=== PATIENT | male | born 1930 | race Caucasian/White ===

== ENCOUNTER 2016-07-18 09:50 | Emergency (ER) | payer MEDICARE, BC ==
[~2016-07-18 09:50] MED LIST: BAYER CHEWABLE81 M2 PO; CELEXA40 MG PO; COLACE100 M1 PO; FLEXERIL10 MG PO; K-DUR20 ME1 PO; LASIX20 MG PO; TORADOL10 MG PO; TRAZODONE HCL100 M1 PO; ULTRAM50 MG PO; VALIUM5 MG PO; WELLBUTRIN XL300 MG PO; XANAX0.25 M1 PO
[2016-07-18] MEDS ORDERED: LAMICTAL25 M2 PO (09:59)
[2016-07-18] MEDS ORDERED: PATADAY2.5 M1 LEFT EYE (09:59)
[2016-07-18] MEDS ORDERED: ZOLOFT100 M1 PO (09:59)
[2016-07-18] MEDS ORDERED: AMBIEN5 M1 PO (10:12)
[2016-07-18 10:29] LABS: BASO % 0.4 % (0-2); EOS % 1.8 % (0-7); EOSINOPHIL ABSOLUTE COUNT 0.1 tho/cmm (0.0-0.7); HGB-HEMOGLOBIN 15.6 gm/dl (13.5-17.0); IMMATURE GRANULOCYTES ABSOLUTE 0.01 tho/cmm (0-0.03); IMMATURE GRANULOCYTES PERCENT 0.1 % (0-0.3); LYMPH % 23.5 % (20-45); LYMPH ABSOLUTE COUNT 1.7 tho/cmm (0.8-4.5); MCH (MEAN CORPUSCULAR HGB) 30.4 pg (28.0-32.0); MCHC MEAN CORPUSCULAR HGB CONC 33.9 % (32.0-36.0); MCV (MEAN CELL VOLUME) 89.5 fl (82.0-96.0); MEAN PLATELET VOLUME 10.3 cmc (9.4-12.4); MONO % 9.2 % (0-12); MONOCYTE ABSOLUTE COUNT 0.7 tho/cmm (0.0-1.2); NEUTROPHIL ABSOLUTE COUNT 4.8 tho/cmm (1.6-8.0); NEUTROPHIL-AUTOMATED 4.8 tho/cmm (1.6-8.0); PLATELET COUNT 149 tho/cmm (150-450); RED BLOOD COUNT 5.14 mil/cmm (4.40-5.70); RED CELL DISTRIBUTION WIDTH 13.3 % (12.4-16.4); WHITE BLOOD COUNT 7.4 tho/cmm (4.0-10.0)
[2016-07-18 10:39] LABS: PROTHROMBIN TIME 11.7 SECONDS (9.0-13.6)
[2016-07-18 10:45] LABS: ANION GAP 10 mmol/L (0-20); BLOOD UREA NITROGEN 12 mg/dl (6-24); CALCIUM 8.6 mg/dl (8.5-10.5); CARBON DIOXIDE-VENOUS 31 mmol/L (22-32); CHLORIDE 105 mmol/l (96-110); CREATININE 0.93 mg/dl (0.60-1.30); GLUCOSE 104 mg/dL (70-110); SODIUM 142 mmol/L (135-145); eGFR VALUE FOR BLACK 86 mL/Min
[2016-07-18 11:37] LABS: URINE BILIRUBIN NEGATIVE (NEG); URINE BLOOD NEGATIVE (NEG); URINE GLUCOSE (UA) NEGATIVE (NEG); URINE KETONE NEGATIVE (NEG); URINE LEUKOCYTE ESTERASE NEGATIVE (NEG); URINE NITRITE NEGATIVE (NEG); URINE PROTEIN NEGATIVE (NEG); URINE SPECIFIC GRAVITY 1.015 (1.003-1.030)
[2016-07-18 11:38] LABS: URINE APPEARANCE HAZY; URINE COLOR YELLOW
[2016-11-15] MEDS ORDERED: NYSTATIN15 G4 TP (10:30)
[2016-11-15] MEDS ORDERED: NYSTATIN15 G4 TOP (10:30)
[2016-11-15] MEDS ORDERED: OXYCODONE20 MG/1 M3 SL ×2 (10:32→10:33)
[2016-11-15] MEDS ORDERED: ATIVAN2 MG/1 ML SL (10:34)
[2016-11-15] MEDS ORDERED: LORAZEPAM2 MG/1 M4 SL (10:35)
[2016-11-15] MEDS ORDERED: TYLENOL325 M2 PR (10:37)
[2016-11-15] MEDS ORDERED: DULCOLAX10 MG PR (10:39)
[2016-11-15] MEDS ORDERED: BISCOLAX10 MG PR (10:40)
== END 2016-07-18 13:00 ==
LOC: EDMED 09:50
PROVIDERS: Emergency Medicine
DX: R53.1 Weakness (principal); R11.0 Nausea; Z86.718 Personal history of other venous thrombosis and embolism; Z86.73 Personal history of transient ischemic attack (TIA), and cerebral infarction without residual deficits
CPT/HCPCS: J2405; J7030

== ENCOUNTER 2016-08-15 18:08 | Inpatient (IN) | payer MEDICARE ==
[~2016-08-15 18:08] MED LIST changes: +AMBIEN5 M1 PO; +LAMICTAL25 M2 PO; +PATADAY2.5 M1 LEFT EYE; +ZOLOFT100 M1 PO
[2016-08-15] MEDS ORDERED: ULTRAM50 M1 PO (20:33)
[2016-08-15 22:49] LABS: BASO % 0.3 % (0-2); EOS % 1.8 % (0-7); EOSINOPHIL ABSOLUTE COUNT 0.2 tho/cmm (0.0-0.7); HGB-HEMOGLOBIN 14.4 gm/dl (13.5-17.0); IMMATURE GRANULOCYTES ABSOLUTE 0.03 tho/cmm (0-0.03); IMMATURE GRANULOCYTES PERCENT 0.3 % (0-0.3); LYMPH % 14.8 % (20-45); LYMPH ABSOLUTE COUNT 1.3 tho/cmm (0.8-4.5); MCH (MEAN CORPUSCULAR HGB) 30.7 pg (28.0-32.0); MCHC MEAN CORPUSCULAR HGB CONC 33.5 % (32.0-36.0); MCV (MEAN CELL VOLUME) 91.7 fl (82.0-96.0); MEAN PLATELET VOLUME 10.4 cmc (9.4-12.4); MONO % 8.6 % (0-12); MONOCYTE ABSOLUTE COUNT 0.8 tho/cmm (0.0-1.2); NEUTROPHIL ABSOLUTE COUNT 6.5 tho/cmm (1.6-8.0); NEUTROPHIL-AUTOMATED 6.5 tho/cmm (1.6-8.0); NEUTROPHILS % 74.2 % (40-80); PLATELET COUNT 121 tho/cmm (150-450); RED BLOOD COUNT 4.69 mil/cmm (4.40-5.70); WHITE BLOOD COUNT 8.8 tho/cmm (4.0-10.0)
[2016-08-15 23:05] LABS: ANION GAP 10 mmol/L (0-20); BLOOD UREA NITROGEN 16 mg/dl (6-24); CALCIUM 8.2 mg/dl (8.5-10.5); CARBON DIOXIDE-VENOUS 30 mmol/L (22-32); CHLORIDE 103 mmol/l (96-110); CREATININE 0.89 mg/dl (0.60-1.30); GLUCOSE 89 mg/dL (70-110); POTASSIUM 4.3 mmol/L (3.7-5.1); SODIUM 139 mmol/L (135-145); eGFR VALUE FOR BLACK >90 mL/Min
[2016-08-15 23:18] LABS: ESR-ERYTHROCYTE SED RATE 3 mm/hr (0-20)
[2016-08-16 18:46] LABS: URINE BILIRUBIN NEGATIVE (NEG); URINE BLOOD LARGE (NEG); URINE GLUCOSE (UA) NEGATIVE (NEG); URINE KETONE NEGATIVE (NEG); URINE LEUKOCYTE ESTERASE NEGATIVE (NEG); URINE NITRITE NEGATIVE (NEG); URINE PROTEIN NEGATIVE (NEG); URINE SPECIFIC GRAVITY 1.025 (1.003-1.030)
[2016-08-16 18:47] LABS: URINE APPEARANCE CLEAR; URINE COLOR DARK YELLOW
[2016-08-16 18:51] LABS: URINE EPITHELIAL CELLS 0 /[HPF] (0-10); URINE MUCUS 1+; URINE RBC 0-3 /[HPF] (0-5); URINE WBC 0 /[HPF] (0-5)
[2016-11-15] MEDS ORDERED: NYSTATIN15 G4 TP (10:30)
[2016-11-15] MEDS ORDERED: NYSTATIN15 G4 TOP (10:30)
[2016-11-15] MEDS ORDERED: OXYCODONE20 MG/1 M3 SL ×2 (10:32→10:33)
[2016-11-15] MEDS ORDERED: ATIVAN2 MG/1 ML SL (10:34)
[2016-11-15] MEDS ORDERED: LORAZEPAM2 MG/1 M4 SL (10:35)
[2016-11-15] MEDS ORDERED: TYLENOL325 M2 PR (10:37)
[2016-11-15] MEDS ORDERED: DULCOLAX10 MG PR (10:39)
[2016-11-15] MEDS ORDERED: BISCOLAX10 MG PR (10:40)
== END 2016-08-20 10:15 | DRG 74 ==
LOC: EDMED 18:08 → EMR2 22:43 → CAR1 22:58 → 5EB 08-16 21:50
PROVIDERS: Internal Medicine; ADMIT Family Medicine
PROC: 3E0S3BZ Introduction of Anesthetic Agent into Epidural Space, Percutaneous Approach (ICD-10-PCS; principal; 2016-08-16)
PROC: 3E0S33Z Introduction of Anti-inflammatory into Epidural Space, Percutaneous Approach (ICD-10-PCS; 2016-08-16)
DX: M54.10 Radiculopathy, site unspecified (principal); F03.90 Unspecified dementia, unspecified severity, without behavioral disturbance, psychotic disturbance, mood disturbance, and anxiety; F32.9 Major depressive disorder, single episode, unspecified; Z86.718 Personal history of other venous thrombosis and embolism; Z86.711 Personal history of pulmonary embolism; Z86.73 Personal history of transient ischemic attack (TIA), and cerebral infarction without residual deficits; Z98.1 Arthrodesis status; Z91.5 Personal history of self-harm; Z79.82 Long term (current) use of aspirin; F41.9 Anxiety disorder, unspecified; M48.07 Spinal stenosis, lumbosacral region; Z91.81 History of falling; M54.31 Sciatica, right side; G25.0 Essential tremor; M89.8X8 Other specified disorders of bone, other site
CPT/HCPCS: G0378; G8978-GP-CJ; G8979-GP-CK; G8987-GO-CK; G8988-GO-CJ; G8989-GO-CK; J1100; J1170; J1650; J2405; J3360; Q9967